=== PATIENT | female | born 1985 | race Two or more races ===

== ENCOUNTER 2017-07-10 14:49 | Emergency (ER) | payer BC, MEDICAID ==
[~2017-07-10] VITALS: Ht 175.3 cm; Wt 6.0 kg
== END 2017-07-10 17:45 | disposition home or self-care (01) ==
LOC: ER 14:49
DX: S61.051A Open bite of right thumb without damage to nail, initial encounter (principal); W54.0XXA Bitten by dog, initial encounter; Y93.89 Activity, other specified; Y92.410 Unspecified street and highway as the place of occurrence of the external cause
CPT/HCPCS: 99283